=== PATIENT | female | born 1940 | race Caucasian/White ===

== ENCOUNTER → 2016-06-13 | Outpatient (CLI) | payer OTHER | LOC: FIMAGING 06:49 | PROVIDERS: ATTEND Family Medicine | DX: R51 Headache (principal); B02.29 Other postherpetic nervous system involvement; M72.0 Palmar fascial fibromatosis [Dupuytren] ==

== ENCOUNTER → 2017-05-09 | Outpatient (CLI) | payer OTHER | LOC: CLAB 16:21 → EDSTATUS 16:25 → CIMAGING 16:26 | PROVIDERS: ATTEND Family Medicine | DX: M25.551 Pain in right hip (principal) | CPT/HCPCS: 73502-PO ==